=== PATIENT | male | born 1930 | race Caucasian/White ===

== ENCOUNTER → 2019-01-04 | Outpatient (CLI) | payer MEDICARE ==
[~2019-01-04] MED LIST: ATOR20 PO; Azor 10-20 MG1 EACH; PANT40 PO; [UNRECOGNIZED DRUG - REMARK]
== END | disposition home or self-care (01) ==
LOC: LAB SHORT 07:51 → PLD 07:51
DX: L82.1 Other seborrheic keratosis (principal)
CPT/HCPCS: 88305